=== PATIENT | male | born 1980 | race Caucasian/White ===

== ENCOUNTER 2016-08-05 10:56 | Outpatient (CLI) | payer MEDICAID, OTHER | END 2016-08-05 10:57 | disposition home or self-care (01) | DX: M25.571 Pain in right ankle and joints of right foot (principal); M79.89 Other specified soft tissue disorders ==

== ENCOUNTER 2022-04-12 15:11 | Emergency (ER) | payer MEDICAID, OTHER ==
[2022-04-12] MEDS ORDERED: TETANUS/DIPHTHERIA/PERTUSSIS 0.5 ML SYRINGE IM ONE (16:10)
[2022-04-12] MEDS ORDERED: BACITRACIN ZINC OINT 1 PACKET TOP STA (16:10)
[2022-04-12] MEDS ORDERED: lidocaine 1% 20 ML MDV SUBQ ONE (16:10)
--- NOTE | 2022-04-12 17:06 | XRAY Report ---
PROCEDURE: Hand 3 View RT INDICATIONS: Rule out finger fractures TECHNIQUE: 3 views of the hand(s) acquired. COMPARISON: None FINDINGS: Bones: Although the third finger is partially obscured by bandaging, no convincing evidence of displa perico fracture noted. Evaluation is limited also by patient positioning Soft tissues: No suspicious soft tissue calcifications. IMPRESSION: No convincing evidence of displaced third finger fracture Reviewed by: Luis Alberto Hopkins MD on 04/12/2022 4:04 PM AKDT Approved by: Luis Alberto Hopkins MD on 04/12/2022 4:04 PM AKDT Station ID: [id number]
[2022-04-12] MEDS ORDERED: LIDOCAINE 1% 2 ML VIAL MC ONE (17:14)
[2022-04-12] MEDS ORDERED: cefTRIAXone 1 GM VIAL IM STA (17:14)
--- NOTE | 2022-04-12 17:19 | ED Physician Documentation ---
History of Present Illness - Stated complaint Stated Complaint: HAND/FINGERS LACERATION - Chief complaint Chief Complaint: Laceration - Additonal information Additional information: 41-year-old male presents emergency department for evaluation of macerated complex lacerations to his ring middle and right index finger. He was trimming hedges with a shearer screen measurer and trimmer when the ladder slipped out from underneath him. He is left-hand dominant. Uncertain of last tetanus. He does have extensive bleeding Review of Systems Ears: reports: Reviewed and negative Skin: reports: Laceration (s) Musculoskeletal: reports: Reviewed and negative PD PAST MEDICAL HISTORY - Present Medications Home Medications: Ambulatory Orders Medication Instructions Recorded Confirmed cephALEXin [Keflex] 500 mg PO Q6H #28 cap 04/12/22 oxyCODONE [Roxicodone] 5 mg PO BID PRN #10 tablet 04/12/22 - Allergies Allergies/Adverse Reactions: Allergies Allergy/AdvReac Type Severity Reaction Status Date / Time No Known Drug Allergies Allergy Verified 04/12/22 15:27 PD ED PE EXPANDED - Extremities Extremities: Right finger(s) (Extensive macerated lacerations with exposure of muscle and soft tissue defect ventral side right ring middle and distal index finger. Patient is able to flex and extend against resistance. Active bleeding present) Results - Vitals Vitals: Vital Signs - 24 hr 04/12/22 04/12/22 15:21 17:33 Temperature 36.5 C 36.7 C Heart Rate 91 94 Respiratory 18 16 Rate Blood Pressure 157/91 H 140/90 H O2 Saturation 99 100 Oxygen O2 Source Room air - Rads (name of study) right hand Radiology: Final report received (No convincing evidence of displaced third finger fracture) Procedures - Laceration (location) right hand Length in cm: 9 Wound type: Irregular, Into subcut fat, Into muscle, Contaminated, Exposure of bone Neurovascular status: Sensory intact, Motor intact Tendon involvement: Tendon intact Anesthesia: Lidocaine 1% with epi Wound preparation: Chlorhexadine, Irrigated copiously NS, Wound explored, Multiple flaps aligned, Extensive undermining Skin layer closure: Size #-0 - enter number (4), Sutures - enter # (24) Other: Patient tolerated well, Tetanus booster given PD MEDICAL DECISION MAKING - ED course Complexity details: considered differential, d/w patient ED course: 41-year-old male presents to the emergency department for evaluation of ex tensive lacerations to the index middle and ring finger sustained when using a shearer screen measurer and trimmer. These wounds were extensive and deep however on exam he had no evidence of tendon injury as he was able to flex and extend all digits against resistance at all joints. Tetanus was updated today. A total of 24 sutures was placed within these extensive lacerations to mostly approximate the wound beds though complete closure was not possible. Patient will require some secondary wound healing. Patient is requested to return to the emergency department tomorrow for a wound check. Ceftriaxone was administered in the emergency department he will be placed on 5 days of cephalexin. Limited prescription of oxycodone is also been sent to the pharmacy. I am prescribing a short course of short-acting opioid pain medication for this patient. I have reviewed the patients [employer] and no concerning findings were noted. I have discussed that the opioids are for short term therapy only, and will not be refilled from the ED. Departure - Departure Disposition: 01 Home, Self Care Clinical Impression: Finger laceration Qualifiers: Encounter type: initial encounter Finger: middle finger Damage to nail status: without damage Foreign body presence: without foreign body Laterality: right Qualified Code(s): S61.212A - Laceration without foreign body of right middle finger without damage to nail, initial encounter Condition: Stable Record reviewed to determine appropriate education?: Yes Prescriptions: cephALEXin [Keflex] 500 mg PO Q6H #28 cap oxyCODONE [Roxicodone] 5 mg PO BID PRN #10 tablet PRN Reason: Pain Comments: Liliane you have some fairly macerated and extensive lacerations to your fingers on your right hand. We used a total 20 4 sutures in order to approximate these wounds but there is a fair amount of tissue loss and the wounds will have to h eal in combination with primary and secondary intention. This will take likely 6 to 8 weeks. I would like you to return to the emergency department tomorrow for a wound check and to make sure that we have appropriate hemostasis. A prescription for antibiotics has been sent to the [facility]. In general I would like you to take Tylenol for discomfort. For more severe pain you can take the oxycodone. In about 3 to 4 hours the numbing medication will wear away so I do make the recommendation that you fill these prescriptions as soon as you are able to. Elevating your hand will also be very helpful in reducing pain and throbbing. If at any point you feel that your symptoms are worsening, you have bleeding through your bandages then please return immediately to the ER for a second evaluation Discharge Date/Time: 04/12/22 17:36
[2022-04-12 17:34] VITALS: BP 140/90
== END 2022-04-12 17:36 | disposition home or self-care (01) ==
LOC: ED 15:11
DX: S61.212A Laceration without foreign body of right middle finger without damage to nail, initial encounter (principal); S61.210A Laceration without foreign body of right index finger without damage to nail, initial encounter; S61.218A Laceration without foreign body of other finger without damage to nail, initial encounter; W27.8XXA Contact with other nonpowered hand tool, initial encounter; Y93.H2 Activity, gardening and landscaping; Z23 Encounter for immunization; Z71.85 Encounter for immunization safety counseling
CPT/HCPCS: 13132; 13133; 73130; 90471; 90715; 96372; 99283; A9270

== ENCOUNTER 2022-04-13 11:28 | Emergency (ER) | payer OTHER ==
[2022-04-13 11:36] VITALS: BP 158/99
--- NOTE | 2022-04-13 12:10 | ED Physician Documentation ---
History of Present Illness - Stated complaint Stated Complaint: F/U HAND/FINGERS LACERATION - Chief complaint Chief Complaint: Wound - Additonal information Additional information: 41-year-old male returns emergency department for reevaluation of the laceration sustained yesterday when using a breast trimmer. He had fairly macerated lacerations on the volar side of his left ring and middle finger as well as some more superficial lacerations on his index finger. At the time of initial examination he however had preserved flexion extension though painful. X-ray did not reveal any fractures. During the visit yesterday he received a total of 20 4 sutures to approximate the wounds though total closure was not possible. Since being seen yesterday he endorses modest pain that is not poorly controlled though he has not yet been able to fill the oxycodone prescription. He was also started on cephalexin. Tetanus was updated yesterday Review of Systems Constitutional: reports: Reviewed and negative Throat: reports: Reviewed and negative Cardiac: reports: Reviewed and negative Respiratory: reports: Reviewed and negative GI: reports: Reviewed and negative : reports: Reviewed and negative Skin: reports: Laceration (s) PD PAST MEDICAL HISTORY - Present Medications Home Medications: Ambulatory Orders Medication Instructions Recorded Confirmed cephALEXin [Keflex] 500 mg PO Q6H #28 cap 04/12/22 04/13/22 oxyCODONE [Roxicodone] 5 mg PO BID PRN #10 tablet 04/12/22 04/13/22 - Allergies Allergies/Adverse Reactions: Allergies Allergy/AdvReac Type Severity Reaction Status Date / Time No Known Drug Allergies Allergy Verified 04/12/22 15:27 Results - Vitals Vitals: Vital Signs - 24 hr 04/13/22 11:35 Temperature 37.1 C Heart Rate 100 Respiratory 18 Rate Blood Pressure 158/99 H O2 Saturation 100 Oxygen O2 Source Room air PD MEDICAL DECISION MAKING - ED course Complexity details: considered differential, d/w patient, d/w family ED course: 41-year-old male returned to the emergency department today for wound check. He sustained lacerations to the volar side of his ring middle and index finger yesterday when using a breast trimmer. These were very macerated. At the time of initial examination there was no evidence of tendon injury and an x-ray did not show findings of bony fracture. He received a total of 20 4 sutures yesterday. Unfortunately we were not able to fully close all of the wounds due to skin and tissue loss. Today in the emergency department the wounds were undressed and we have nearly total hemostasis. There is an edge on the medial section of the index finger that con tinues to leak a little therefore some Surgicel was placed. Bacitracin and then nonstick gauze was placed. However in general the wounds appear to be healing well and look as good as I expected them to. The patient has near syncope with dressing changes. His also has near syncope with wounds and dressing changes therefore he is encouraged to either return to the ER or any urgent care for the dressing changes as neither feel that they can accomplish them at home. Patient is to continue to take the antibiotics prescribed yesterday and a prescription for oxycodone was sent to the pharmacy. Otherwise emergent return precautions discussed. Departure - Departure Disposition: Home, Self Care Clinical Impression: Encounter for wound re-check Condition: Stable Record reviewed to determine appropriate education?: Yes Comments: Liliane your wounds today look as good as I expected them to. Yesterday we were able to approximate most of the wound edges however there was some tissue loss that prevented us from fully closing the wounds. This means that it will require secondary intention. I expect that these wounds will take a few weeks to heal. In general your dressing should be changed every day. You can gently wash with warm soap and water, pat dry and then apply a thin layer of antibiotic ointment. After about 10 to 14 days the sutures should be removed. It is important you fill the antibiotic prescription sent yesterday. I recommend that you take the oxycodone about half an hour to an hour before your dressing change. You can also take ibuprofen 600 mg with food. This will be important in helping manage your pain. Continue to wear your hand in the temporary splint as shown to prevent movement of the fingers while the tissue heals. Return immediately to the ER if you have any concerns of infection, fevers milky drainage or red streaking on your arm or worsening pain despite dressing changes and antibiotics
== END 2022-04-13 12:24 | disposition home or self-care (01) ==
LOC: ED 11:28
DX: Z48.01 Encounter for change or removal of surgical wound dressing (principal); S61.211D Laceration without foreign body of left index finger without damage to nail, subsequent encounter; S61.215D Laceration without foreign body of left ring finger without damage to nail, subsequent encounter; S61.213D Laceration without foreign body of left middle finger without damage to nail, subsequent encounter; W27.8XXD Contact with other nonpowered hand tool, subsequent encounter
CPT/HCPCS: 99281; 99282

== ENCOUNTER 2023-05-09 17:47 | Emergency (ER) | payer OTHER ==
[2023-05-09 18:10] LABS: BILIRUBIN,URINE NEGATIVE (NEGATIVE); GLUCOSE, URINE (UA) NEGATIVE (NEGATIVE); KETONES,URINE (UA) NEGATIVE (NEGATIVE); LEUKOCYTE ESTERASE, URINE NEGATIVE (NEGATIVE); NITRITE,URINE NEGATIVE (NEGATIVE); OCCULT BLOOD,URINE NEGATIVE (NEGATIVE); PROTEIN,URINE NEGATIVE (NEGATIVE); UROBILINOGEN,URINE 0.2 (NORMAL) E.U./dL (NORMAL)
[2023-05-09 18:12] LABS: CLARITY,URINE CLEAR (CLEAR)
[2023-05-09 18:13] LABS: BASOPHILS # (AUTO) 0.1 10^3/uL (0.0-0.1); BASOPHILS % (AUTO) 0.8 %; EOSINOPHILS % (AUTO) 0.1 %; HCT - HEMATOCRIT 42.5 % (42.0-52.0); LYMPHOCYTES # (AUTO) 1.5 10^3/uL (1.5-3.5); LYMPHOCYTES % (AUTO) 14.3 %; MEAN CORPUSCULAR HEMOGLOBIN 29.4 pg (27.0-31.0); MEAN CORPUSCULAR HGB CONC 32.9 g/dL (32.0-36.0); MEAN CORPUSCULAR VOLUME 89.1 fL (80.0-94.0); MEAN PLATELET VOLUME 9.9 fL (7.4-11.4); MONOCYTES # (AUTO) 0.8 10^3/uL (0.0-1.0); MONOCYTES % (AUTO) 7.8 %; NEUTROPHILS # (AUTO) 8.1 10^3/uL (1.5-6.6); NEUTROPHILS % (AUTO) 76.5 %; PLT - PLATELET COUNT 283 10^3/uL (130-450); RED BLOOD COUNT 4.77 10^6/uL (4.70-6.10); RED CELL DISTRIBUTION WIDTH 11.9 % (12.0-15.0); WHITE BLOOD COUNT 10.5 x10^3/uL (4.8-10.8)
--- NOTE | 2023-05-09 18:13 | ED Physician Documentation ---
PD HPI ABD PAIN - Stated complaint Stated Complaint: ABD PX - Chief complaint Chief Complaint: Abd Pain - History obtained from History obtained from: Patient - Additional information Additional information: After eating Rebekah Lino he developed epigastric pain about 4 PM today, just 2 hours ago which later radiated to the right lower quadrant. No urinary complaints, bowel problems, or history of bowel surgery. PD PAST MEDICAL HISTORY - Present Medications Home Medications: Ambulatory Orders Medication Instructions Recorded Confirmed lisinopriL [Lisinopril] 20 mg PO DAILY 05/09/23 05/09/23 - Allergies Allergies/Adverse Reactions: Allergies Allergy/AdvReac Type Severity Reaction Status Date / Time No Known Drug Allergies Allergy Verified 04/12/22 15:27 PD ED PE NORMAL - Vitals Vital signs reviewed: Yes - General General: Alert and oriented X 3, No acute distress - Cardiac Cardiac: RRR, No murmur - Respiratory Respiratory: No respiratory distress, Clear bilaterally - Abdomen Abdomen: Normal bowel sounds, Other (Mild diffuse right-sided abdominal tenderness without surgical signs) - Neuro Neuro: Alert and oriented X 3, Normal speech - Psych Psych: Normal mood, Normal affect Results - Vitals Vitals: Vital Signs - 24 hr 05/09/23 05/09/23 18:00 19:41 Temperature 36.8 C Heart Rate 111 H 93 Respiratory 16 18 Rate Blood Pressure 159/97 H 147/103 H O2 Saturation 98 99 Oxygen O2 Source Room air - Labs Labs: Laboratory Tests 05/09/23 05/09/23 05/09/23 18:03 18:08 18:08 WBC 10.5 RBC 4.77 Hgb 14.0 Hct 42.5 MCV 89.1 MCH 29.4 MCHC 32.9 RDW 11.9 L Plt Count 283 MPV 9.9 Neut # (Auto) 8.1 H Lymph # (Auto) 1.5 Stark # (Auto) 0.8 Eos # (Auto) 0.0 Baso # (Auto) 0.1 Absolute Nucleated RBC 0.00 Nucleated RBC % 0.0 Sodium 136 Potassium 3.4 L Chloride 101 Carbon Dioxide 26 Anion Gap 9.0 BUN 12 Creatinine 0.9 Estimated GFR (MDRD) 93 Glucose 116 H Calcium 9.5 Total Bilirubin 0.3 AST 38 ALT 46 Alkaline Phosphatase 54 Total Protein 8.0 Albumin 5.0 Globulin 3.0 Albumin/Globulin Ratio 1.7 Lipase 1606 H Urine Color YELLOW Urine Clarity CLEAR Urine pH 6.0 Ur Specific [place] 1.010 Urine Protein NEGATIVE Urine Glucose (UA) NEGATIVE Urine Ketones NEGATIVE Urine Occult Blood NEGATIVE Urine Nitrite NEGATIVE Urine Bilirubin NEGATIVE Urine Urobilinogen 0.2 (NORMAL) Ur Leukocyte Esterase NEGATIVE Ur Microscopic Review NOT INDICATED Urine Culture Comments NOT INDICATED - Rads (name of study) ct a/p Relevant Findings:: Final report received, EMP independent interpretation of test PD Medical Decision Making - ED course ED course: Declined pain medication on initial evaluation. 42-year-old gentleman presents with acute abdominal pain. It actually seems to acute to be appendicitis which was what he was sent here for. Work-up demonstrates evidence of pancreatitis both biochemically with a lipase of [address] Otherwise his CBC, CMP, and urinalysis were negative/normal. We discussed frankly his alcohol drinking. He tries to take a few nights a week off of drinking but about 4 nights a week he drinks heavily including last night. Discussed with him that the likely cause of his pancreatitis was alcohol and cessation or at least severely cutting back on alcohol was advised. He very much wanted to be discharged home and given that he required no pain medication here, I do not think this is unreasonable is given close return precautions. Departure - Departure Disposition: 01 Home, Self Care Clinical Impression: Pancreatitis Qualifiers: Chronicity: acute Pancreatitis type: alcohol induced Acute pancreatitis complication: no infection or necrosis Qualified Code(s): K85.20 - Alcohol induced acute pancreatitis without necrosis or infection Condition: Good Record reviewed to determine appropriate education?: Yes Instructions: Diet Clear Liquid Dc, ED Pancreatitis Comments: You were seen tonight for pancreatitis, the likely cause of which was excessive alcohol use. I would not drink for the next couple of days and after that avoid alcohol if you can, but either way no more than 2-3 drinks on any evening. I would do a clear liquid diet for the next 24 hours, and follow-up with your primary care physician, next available appointment. Return if worsening. Forms: PCP List Discharge Date/Time: 05/09/23 19:42
[2023-05-09 18:28] LABS: ALBUMIN/GLOBULIN RATIO 1.7 (1.0-2.2); BILIRUBIN,TOTAL 0.3 mg/dL (0.2-1.0); CALCIUM 9.5 mg/dL (8.5-10.3); CREATININE 0.9 mg/dL (0.6-1.3); POTASSIUM 3.4 mmol/L (3.5-4.5)
[2023-05-09] MEDS ORDERED: iohexoL-300 100 ML VIAL IVP ONE (19:04)
--- NOTE | 2023-05-09 19:26 | CT Report ---
PROCEDURE: ABDOMEN/PELVIS W INDICATIONS: IV only RLQ pain, can go before labs CONTRAST: 100ml omni 300 TECHNIQUE: After the administration of intravenous contrast, 5 mm thick sections acquired from the diaphragms to the symphysis. 5 mm thick coronal and sagittal reformats were acquired. For radiation dose reducti on, the following was used: automated exposure control, adjustment of mA and/or kV according to kayode ent size. COMPARISON: None FINDINGS: Image quality: Excellent. Lung bases and heart: Unremarkable. Liver: Mild diffuse hepatic steatosis. Gallbladder and biliary tree: No radiopaque stones or wall thickening. No biliary dilation. Spleen: No splenomegaly. Pancreas: Acute pancreatitis with edema involving the pancreatic head and uncinate process and peripa ncreatic fluid present tracking along slightly into the right paracolic gutter. No evidence of pancre atic necrosis. No free air or abscess. Adrenals: No adrenal nodule. Kidneys and ureters: No hydronephrosis. No renal cystic lesion which requires follow up. No solid mas s. Bowel and peritoneum: No bowel distension. No pathologic free fluid. Normal appendix. Lymph nodes: No central or retroperitoneal adenopathy. Vessels: No infrarenal aortic aneurysm. PELVIS Reproductive organs: Unremarkable. Bladder: No abnormal wall thickening, accounting for underdistension. Pelvic lymph nodes: No pelvic adenopathy by size criteria. Bones: No aggressive osseous abnormality. Other: Small fat-containing left inguinal hernia. No inguinal adenopathy. IMPRESSION: 1. Acute pancreatitis. 2. Mild diffuse hepatic steatosis. 3. Normal appendix. Reviewed by: Luis A Ta MD on 05/09/2023 7:25 PM PDT Approved by: Luis A Ta MD on 05/09/2023 7:25 PM PDT Station ID: [id number]
[2023-05-09 19:48] VITALS: BP 147/103; O2SAT 99
== END 2023-05-09 19:42 | disposition home or self-care (01) ==
LOC: ED 17:47
DX: K85.20 Alcohol induced acute pancreatitis without necrosis or infection (principal)
CPT/HCPCS: 36415; 74177; 80053; 81003; 83690; 85025; 99284; Q9967; 81001; 87086